=== PATIENT | male | born 1955 | race Caucasian/White ===

== ENCOUNTER 2017-04-26 01:27 | Emergency (ER) | payer MEDICAID ==
[2017-04-26 01:43] VITALS: BMI 18.3
[2017-04-26] MEDS ORDERED: HYDROGEN PEROXIDE 3% ONE (01:46)
--- NOTE | 2017-04-26 02:02 | DR.GENAD ---
HPI - PCP Primary Care Physician: bill - HPI Comment HPI Comment: ABRASIONS AND LACERATION PRESENT. HEADAHE AND NECK PAIN PRESENT. - Complaint/Symptoms Chief Complaint Doctors Comments: FELL AND INJURED FACE AND NECK. Chief Complaint:: patient fell in bathroom has laceration above left eye with abraison on lest side of nose and face. neck hurts felt it pop - Nurses notes reviewed Nurses Notes Review: Yes - Source History Provided: Patient, Family Member - Mode of Arrival Mode of Arrival: Ambulatory - Timing Onset of Chief Complaint: 04/26/17 Came on: Suddenly - Duration Duration: Constant Duration: Hours - Severity Severity: Moderate PMH - PMH Past Medical History: Yes Past Medical History: Angina, Arthritis, CVA, Dyslipidemia Past Surgical History: Yes Surgical History: Ortho Surgery Past Surgical History Comment: left aka/ stents in right leg - Family History History of Family Medical Conditions: Yes Family Medical History: Cancer, [place], Coronary Artery Disease, Heart Failure, Hypertension - Social History Does patient currently use any type of tobacco product: No Have you used tobacco products in the last 12 months: No Type of Tobacco Use: None How many years tobacco product used: 35 Does any household member use tobacco: No Alcohol Use: None Do you use any recreational Drugs:: No Lives With: Alone Lives Where: Home - infectious screening In the last 2 months have you had wt loss of >10#?: NO Have you had fever, night sweats or hemotysis?: No Have you traveled outside the country in the last 6 months?: No Isolation: Standard ROS - Review of Systems Constitutional: No Symptoms Reported Eyes: Blurred Vision (LEFT EYE.) ENTM: No Symptoms Reported Respiratoy: No Symptoms Reported Cardiovascular: No Symptoms Reported Gastrointestinal/Abdominal: No Symptoms Reported Genitourinary: No Symptoms Reported Neurological: Headache Musculoskeletal: Neck, Elbow (LEFT ELBOR BRUISING AND ABRASION), Leg (ABRASION AND BRUISING LEFT AKA STUMP.), Other (LEFT PEROORBITAL AND NOSE PAIN) Integumentary: Bruises (BRUISING AND ABRASION LEFT NOSE.), Other (LACERATION LEFT EYE BROW AND MEDIAL CORNER LEFT EYE.) Hematologic/Lymphatic: Easy Bruising Endocrine: No Symptoms Reported All Other Systems: Reviewed and Negative PE - Vital Signs Vitals: Temperature 98.9 F Pulse Rate [Right Brachial] 72 Pulse Rate 115 Respiratory Rate 16 Blood Pressure [Right Arm] 138/79 Blood Pressure 148/75 O2 Sat by Pulse Oximetry 97 - General Limitations: No Limitations General Appearance: Alert, Anxious - Head Head Exam: Other (ABRASION LT NOSE, TENDERNESS LT NOSE. LEFT PERIORBITAL SWELLING.) - Eyes Eye exam: PERRL, EOMI, Conjunctival Injection (SUBCONJUNCTIVA HEMORRHAGE), Periorbital Swelling, Periorbital Tenderness, Other (LACERATION, 2CM LT EYE BROW AND 1CM LAC MEDIAL CORNER LEFT EYE.) - ENT ENT Exam: Normal Oropharynx, Normal External Ear Exam, Mucous Membranes Moist, TM's Normal Bilaterally External Ear Exam: Normal External Inspection TM/Canal Exam: Bilateral Normal Nose Exam: Other (ABRASION LEFT NOSE AND TENDERNESS NOSE.) Mouth Exam: Normal Inspection Throat Exam: Normal Inspection - Neck Neck Exam: Trachea Midline, Tenderness - Chest Chest Inspection: Symmetric Chest Wall Rise - Respiratory Respiratory Exam: Normal Lung Sounds Bilat Respiratory Exam: Bilateral Clear to Auscultation - Cardiovascular Cardiovascular Exam: Regular Rate, Normal Rhythm, Normal Heart Sounds - Abdominal Exam Abdominal Exam: Normal Bowel Sounds, Soft. negative: Tenderness - Extremities Extremities Exam: Full ROM, Tenderness (LT AKA STUMP AND LT ELBOW ABRASION AND TENDERNESS.). negative: Joint Swelling - Back Back Exam: Normal Inspection - Neurologic Neurological Exam: Alert, Oriented X3 - Psychiatric Psychiatric Exam: Anxious - Skin Skin Exam: Erythema MDM - Additional Information Additional Information Obtained From: Family - Differential Diagnosis Differential Diagnosis: CONTUSIONS AND ABRSIONS, HEAD/NECK INJURY, FRACTURE NOSE LAC LT EYE BROW Course - Treatment Treatment: SEE ORDERS. LACERATION CLOSE. - Consultation Consultation Comments: DIS[facility] PATIENT [facility] DR[facility]UELS[facility] HIS PARTNER WILL SEE PATIENT IN AM AT THEIR [place] OFFICE. - Education/Counseling Education/Counseling: Patient, Family, Education Educated On: Treatment, Diagnosis ROR - XRAY XRAY Interpreted by: Radiologist XRAY Findings: REPORTS DISCUSS WITH PATIENT AND HIS FAMILY. - Diagnosis Discharge Problem: Multiple contusions, Multiple abrasions, Traumatic subconjunctival hemorrhage of left eye Laceration of nose Qualifiers: Encounter type: initial encounter Qualified Code(s): S01.21XA - Laceration without foreign body of nose, initial encounter Closed head injury Qualifiers: Encounter type: initial encounter Qualified Code(s): S09.90XA - Unspecified injury of head, initial encounter Complex laceration of left eyebrow Qualifiers: Encounter type: initial encounter Qualified Code(s): S01.112A - Laceration without foreign body of left eyelid and periocular area, initial encounter Neck strain Qualifiers: Encounter type: initial encounter Qualified Code(s): S16.1XXA - Strain of muscle, fascia and tendon at neck level, initial encounter - Discharge Plan Disposition: 01 HOME, SELF-CARE Condition: Stable Prescriptions: Cephalexin [KEFLEX CAP 500 MG *] 500 mg PO TID #30 cap - Follow ups/Referrals Follow ups/Referrals: JUVENAL LEW [Primary Care Provider] - 3 days - Instructions Instructions: Laceration Care, Adult, [id number], Nasal Fracture, Easy-to- Read Additional Instructions: return to ed if worse. suture out in 10 days. see platic surgeon in am in [place] at 09:[phone] samuels office. his partner will tend to the patient.
--- NOTE | 2017-04-26 02:53 | CT ---
CT head without contrast Indication: Headache after fall. Technique: CT images of the head were obtained without contrast. Automatic exposure control was util ized. Findings: There is right frontal encephalomalacia consistent with remote infarct. There is a smaller area of left frontal encephalomalacia as well. There is no acute bleed, mass effect, or abnormal ex tra-axial collection. No acute calvarial fracture identified. The mastoid air cells and middle ears are clear. Cervical and facial findings reported separately. Impression: No acute intracranial abnormality. Chronic bifrontal infarcts. Reported By:
--- NOTE | 2017-04-26 02:57 | CT ---
CT face without contrast Indication: Trauma with facial injury. Technique: CT images of the face were obtained without contrast. Automatic exposure control was util ized. Findings: There is significant left periorbital soft tissue swelling with associated soft tissue gas in the left supraorbital region, suggesting laceration. No radiopaque foreign body identified. The globes are grossly intact. No significant retrobulbar stranding or hematoma is seen. There may be a nondisplaced left nasal bone fracture. The bony nasal septum is midline. No displaced facial fractur e identified. The mandible is intact. The paranasal sinuses are grossly clear. Impression: Left periorbital soft tissue injury with nondisplaced left nasal bone fracture. No displaced facial fracture identified. Reported By:
--- NOTE | 2017-04-26 03:01 | CT ---
CT cervical spine without contrast Indication: Trauma, fall, pain. Comparison: None Technique: CT images of the cervical spine were obtained without contrast. Automatic exposure contro l was utilized. Findings: The cervical spine alignment is normal. No significant vertebral body height loss or corti jefry disruption is identified. There is multilevel discogenic degenerative disease, moderate to advan morena at C5-6 and C6-7. Moderate multilevel facet arthropathy is also noted. No significant prevertebr al soft tissue swelling. Images of the upper lungs demonstrate emphysema. No apical pneumothorax. Impression: No acute cervical spine fracture. Multilevel spondylosis worst at C5-6 and C6-7. Emphysema. Reported By:
[2017-04-26] MEDS ORDERED: XYLOCAINE 1 % (PLAIN) ONE (03:02)
[2017-04-26] MEDS ORDERED: GENTAK OPHTH OINT ONE (03:50)
[2017-04-26] MEDS ORDERED: FUL-GLO STRIP ONE (03:50)
[2017-04-26] MEDS ORDERED: NEOSPORIN OINT ONE (03:50)
[2017-04-26] MEDS ORDERED: ANCEF VIAL 1 GM ONE (04:36)
[2017-04-26] MEDS ORDERED: XYLOCAINE 1 % (PLAIN) IM PRN (04:39)
[2017-04-26] MEDS ORDERED: GENTAMICIN TOPICAL OINT TOP ONE (04:43)
[2017-04-26] MEDS ORDERED: ANCEF VIAL 1 GM IM ONE (04:43)
[2017-04-26 05:48] VITALS: BP 138/79
== END 2017-04-26 05:45 | disposition home or self-care (01) ==
LOC: ER 01:27
DX: S01.21XA Laceration without foreign body of nose, initial encounter (principal); S09.90XA Unspecified injury of head, initial encounter; S01.112A Laceration without foreign body of left eyelid and periocular area, initial encounter; S16.1XXA Strain of muscle, fascia and tendon at neck level, initial encounter; T14.8 Other injury of unspecified body region; H11.32 Conjunctival hemorrhage, left eye; J43.9 Emphysema, unspecified; M47.812 Spondylosis without myelopathy or radiculopathy, cervical region; W19.XXXA Unspecified fall, initial encounter; Y92.89 Other specified places as the place of occurrence of the external cause
CPT/HCPCS: 70450; 70486; 72125; 96372; 99283; J0690; J2001

== ENCOUNTER 2017-04-30 10:27 | Day surgery (SDC) | payer MEDICAID ==
[2017-04-30] MEDS ORDERED: KENALOG INJ 40 MG ONE (11:14)
[2017-04-30] MEDS ORDERED: XYLOCAINE 1 % (PLAIN) ONE (11:14)
[2017-04-30] MEDS ORDERED: MARCAINE 0.5% ONE (11:14)
--- NOTE | 2017-04-30 11:16 | DR.H&P ---
H&P - History & Physical for Day of: H&P Date: 04/30/17 - Chief Complaint Chief Complaint: back pain - Allergies Allergies/Adverse Reactions: Allergies Allergy/AdvReac Type Severity Reaction Status Date / Time MS No Known Drug Allergy Allergy Verified 07/03/12 17:28 [No Known Drug Allergy] - History of Present Illness History of Present Illness: long standing h/o above cc. received bilateral facet injections L5-S1 2012 with some relief. has been hurting for some time since, however. pt is very diffucult to unerstand due to previous cva. his sister interprets - Past Medical History Past Medical History: Angina, Arthritis, CVA, Dyslipidemia - Past Surgical History Surgical History: Ortho Surgery - Family History Family Medical History: Cancer, [place], Coronary Artery Disease, Heart Failure, Hypertension - Social History Does patient currently use any type of tobacco product: No Have you used tobacco products in the last 12 months: No Type of Tobacco Use: None Alcohol Use: None Drug Use: None - Review of Systems Skin: Bruising (left eye secondary to recent fall) - Physical Exam Vital Signs: Temperature 98.1 F Pulse Rate 67 Respiratory Rate 20 Blood Pressure [Right Arm] 138/79 Blood Pressure 135/80 O2 Sat by Pulse Oximetry 98 Musculoskeletal: Back:Thoracic (no pain on palpation), Back:Lumbar (no pain on palpation) Psychiatric: Normal Mood Description: Anxious Speech Pattern: Unclear, Slurred (s/p cva) - Assessment/Plan (1) Back pain Qualifiers: Back pain location: B Chronicity: C Back pain laterality: B Sciatica presence: S Sciatica laterality: S Status: Acute Plan: facet injection L5-S1 bilaterally
[2017-04-30] MEDS ORDERED: MARCAINE/EPINEPHRINE ONE (11:31)
[2017-04-30 14:01] VITALS: BP 126/75
== END 2017-04-30 11:59 | disposition home or self-care (01) | DRG 552 ==
LOC: SURG1 10:27
PROVIDERS: ATTEND Internal Medicine
PROC: 3E0U33Z Introduction of Anti-inflammatory into Joints, Percutaneous Approach (ICD-10-PCS; 2017-04-30)
PROC: BR16ZZZ Fluoroscopy of Lumbar Facet Joint(s) (ICD-10-PCS; 2017-04-30)
PROC: 3E0U3BZ Introduction of Anesthetic Agent into Joints, Percutaneous Approach (ICD-10-PCS; principal; 2017-04-30 12:45)
DX: M54.89 Other dorsalgia (principal)
CPT/HCPCS: 64493; 64494; S0020; J2001; J3301

== ENCOUNTER → 2017-07-17 | Outpatient (CLI) | payer MEDICAID ==
--- NOTE | 2017-07-17 16:24 | RAD ---
Examination: Lumbar spine, five views History: Low back pain Findings: There is mild disc narrowing and marginal osteophyte formation at multiple levels. No fract ure or vertebral displacement or bone destruction is noted. Pedicles are intact. The sacroiliac joint s are not well visualized. There is extensive arteriosclerotic calcification of the nondilated aorta and iliac arteries. Additional lateral views were obtained in flexion and extension demonstrating nor mal sagittal mobility without evidence for subluxation/instability. Impression: 1. Multilevel degenerative disc disease and spondylosis with no acute component identified. 2. Aortoiliac arteriosclerosis. Reported By:
--- NOTE | 2017-07-17 17:17 | CT ---
HISTORY: Back pain x2 weeks. No trauma. Study: CT lumbar spine without contrast Comparison: Lumbar spine dated same day at 3:19 p.m. Technique: Multiple axial images of the lumbar spine were obtained from the thoracolumbar junction t o the sacrum without the administration of IV contrast. Sagittal and coronal reformats were performe d and reviewed. Dose reduction techniques including Automated Exposure Control (AEC) and adjustment of mA and kV were utilized. Findings: Anatomic alignment without acute fracture or listhesis. Multilevel [id number] disc space narrow ing, facet arthrosis and anterior disc osteophyte complexes. No significant spinal canal stenosis. Mi ld bilateral neural foraminal narrowing at L3 through L5. Bilateral nonobstructing renal nephroliths. Vascular calcifications without evidence of aneurysmal dilatation. Remaining soft tissues are unrema rkable. IMPRESSION: Chronic findings as above. Reported By:
== END | disposition home or self-care (01) ==
LOC: RAD 14:55
PROVIDERS: ATTEND Neurological Surgery
DX: M54.5 Low back pain (principal); M51.36 Other intervertebral disc degeneration, lumbar region; M47.896 Other spondylosis, lumbar region
CPT/HCPCS: 72110; 72131

== ENCOUNTER → 2017-08-17 | Outpatient (CLI) | payer MEDICAID ==
--- NOTE | 2017-08-21 07:45 | NM ---
Nuclear medicine bone scan Indication: Low back pain Comparison: CT dated 07/17/2017 Technique: 25.28 mCi of technetium labeled MDP was injected intravenously with whole body planar imag ing performed. Findings: There is physiologic radiotracer distribution within the kidneys and bladder. There is mild increased radiotracer uptake within the lower cervical spine on the left suspected at the approximat e level of C5-6 facet joint. Decreased radiotracer uptake is noted within the right greater than left AC joints. No other abnormal radiotracer accumulation is identified within the axial or appendicular skeleton. Impression: Focal radiotracer uptake within the lower cervical spine and bilateral AC joints most lik kera represents sequela of osteoarthrosis. No pathologic increased or decreased radiotracer uptake wit hin the axial or appendicular skeleton. Reported By:
== END ==
LOC: RAD 09:11
PROVIDERS: ATTEND Neurological Surgery
DX: M54.5 Low back pain (principal)
CPT/HCPCS: 78306; A9503

== ENCOUNTER 2018-05-06 16:23 | Observation (INO) ==
[2018-05-06] MEDS ORDERED: MORPHINE SULFATE INJ 2 MG INJ IVP PRN (17:27)
[2018-05-06] MEDS ORDERED: FLEXERIL TAB 10 MG PO PRN (17:27)
--- NOTE | 2018-05-06 17:56 | DR.H&P ---
H&P - History & Physical for Day of: H&P Date: 05/06/18 - Chief Complaint Chief Complaint: LEFT HIP PAIN, ELEVATED BLOOD PRESSURE, CHEST PAIN - History of Present Illness History of Present Illness: 62WM DIRECT ADMIT FROM DR TREVINO OFFICE WITH CO INTRACTABLE LEFT HIP PAIN, CRYING IN LOBBY WITH PAIN, CO CHEST PAIN AND ELEVATED BLOOD PRESSURE. PT STATES HE HAS TAKEN BP MEDICATION THIS AM AND PAIN CONTROL MEDICATION AND HAS FENTANYL PATCH ON. PT STATES HE THINKS CHEST PAIN IS FROM SEVERE HIP PAIN AND BEING UPSET. PT HAD PMH OF PAD, CVD, OA, HTN. PT BP 190 /120 IN OFFICE. PT GIVEN TORADOL SHOT IN OFFICE FOR PAIN. - Past Medical History Past Medical History: Angina, Arthritis, CVA, Dyslipidemia, Headaches, Hypertension Additional Medical History: PAD - Past Surgical History Surgical History: Appendectomy - Family History Family Medical History: Cancer, Hypertension - Social History Does patient currently use any type of tobacco product: No Have you used tobacco products in the last 12 months: No Type of Tobacco Use: None Does any household member use tobacco: No Alcohol Use: None Drug Use: None - Medications Home Medications: No Known Drug Allergies Allergy (Verified 05/06/18 17:22) CONTINUE taking the following medications buspirone 7.5 mg PO BID 05/06/18 [History] cilostazol 100 mg PO BID 05/06/18 [History] clopidogrel [Plavix] 75 mg PO QDAY 05/06/18 [History] fentanyl 1 patch TRANSDERMAL Q72H 05/06/18 [History] gabapentin [Neurontin] 300 mg PO TID 05/06/18 [History] hydrocodone-acetaminophen [[place]] 1 tab PO Q6H PRN 05/06/18 [History] lisinopril 5 mg PO QDAY 05/06/18 [History] meloxicam 7.5 mg PO BID 05/06/18 [History] nitroglycerin 0.4 mg SUBLINGUAL Q5-15M PRN 05/06/18 [History] rizatriptan 10 mg PO ONCE 05/06/18 [History] simvastatin 10 mg PO QHS 05/06/18 [History] topiramate [Topamax] 25 mg PO QDAY 05/06/18 [History] zolpidem [Ambien] 10 mg PO QHS PRN 05/06/18 [History] - Review of Systems Constitutional: Weakness Eyes: No Symptoms Reported ENT: No Symptoms Reported Respiratory: Shortness of Breath Cardiovascular: Chest Pain Gastrointestinal: No Symptoms Reported Genitourinary: No Symptoms Reported Musculoskeletal: Leg Pain (HIP PAIN ) Skin: No Symptoms Reported Neurological: Weakness, Other (CHRONIC SPEECH IMPAIRMENT) - Physical Exam Vital Signs: Blood Pressure [Right Arm] 138/79 Blood Pressure 126/75 Oriented: Normal Eyes: Normal Ear: Normal Nose: Normal Throat: Normal Respiratory: RLL Diminished, LLL Diminished Cardiovascular: Tachycardia : Normal Auscultation: Bowel Sounds: Normal Palpation: Normal Tenderness: Normal Skin: Decreased [place]urgur Musculoskeletal: Left, Hip, Thigh, Deformity (LEFT AKA) Psychiatric: Anxiety Affect: Anxious Speech Pattern: Unclear, Excessive - Assessment/Plan (1) Chest pain Status: Acute Plan: ADMIT, CARDIAC MONITORING, CARDIAC ENZYMES. EKG, ADMISSION LABS. CXR ON ADMISSION BP CONTROL. RESUME HOME MEDS. XRAY HIP ON ADMISSION, PAIN CONTROL, MRI LEFT HIP AND L SPINE Q AM. IV SOLUMEDROL AND FLEXERIL FOR MUSCLE SPASMS (2) Hypertensive urgency Status: Acute (3) Hip pain Status: Acute (4) CVD (cardiovascular disease) Status: Acute - Allergies Allergies/Adverse Reactions: Allergies Allergy/AdvReac Type Severity Reaction Status Date / Time No Known Drug Allergies Allergy Verified 05/06/18 17:22
[2018-05-06 17:58] LABS: BASOPHILS # (AUTO) 0.1 X10^3/uL (0.0-0.1); BASOPHILS % (AUTO) 0.9 % (0.2-1.0); EOSINOPHILS # (AUTO) 0.1 x10^3/uL (0.0-0.2); EOSINOPHILS % (AUTO) 1.6 % (0.9-2.9); HEMATOCRIT 40.9 % (42.0-54.0); HEMOGLOBIN 13.9 g/dL (13.5-18.0); LYMPHOCYTES # (AUTO) 1.1 X10^3/uL (1.3-2.9); LYMPHOCYTES % (AUTO) 18.1 % (21.0-51.0); MEAN CORPUSCULAR HEMOGLOBIN 30.2 pg (27.0-34.0); MEAN CORPUSCULAR HGB CONC 33.9 g/dL (33.0-35.0); MEAN CORPUSCULAR VOLUME 89.2 fL (80.0-100.0); MEAN PLATELET VOLUME 6.8 fL (7.4-11.0); MONOCYTES # (AUTO) 0.4 x10^3/uL (0.3-0.8); MONOCYTES % (AUTO) 6.1 % (0.0-13.0); NEUTROPHILS # (AUTO) 4.4 x10^3/uL (2.2-4.8); NEUTROPHILS % (AUTO) 73.3 % (42.0-75.0); PLATELET COUNT 334 X10^3/uL (150.0-450.0); RED BLOOD COUNT 4.58 X10^6/uL (4.7-6.0); RED CELL DISTRIBUTION WIDTH 12.7 % (11.6-16.5)
[2018-05-06] MEDS ORDERED: NITROSTAT SL PRN (17:59)
[2018-05-06] MEDS ORDERED: NORCO 10/325 TAB PO PRN (17:59)
[2018-05-06] MEDS ORDERED: RIZATRIPTAN 10 MG PO SCH (18:00)
--- NOTE | 2018-05-06 18:05 | RAD ---
HISTORY: Severe left hip pain Study: Bilateral two-view hips Comparison: CTA of the pelvis done 01/16/2013. Technique: AP views of the pelvis are obtained with the hips in neutral and frogleg lateral positions . Findings: No evidence of fracture or dislocation is seen. The femoral heads are well seated within the acetabul ar regions bilaterally. There is no evidence of radiographic AVN. There are surgical clips present in both groin regions. There is a mild small bowel ileus pattern present. IMPRESSION: No evidence of hip fracture or dislocation. Reported By:
--- NOTE | 2018-05-06 18:06 | RAD ---
HISTORY: Severe left hip pain, hypertension Study: Single-view chest Comparison: 10/23/2013 Findings: The trachea is midline. The cardiac silhouette is unremarkable. There are chronic interstitial change s suggesting COPD. No acute infiltrate, consolidation, or pleural effusion is identified. The bony st ructures are intact. IMPRESSION: 1. COPD without acute cardiopulmonary process evident Reported By:
[2018-05-06 18:12] LABS: BLOOD UREA NITROGEN 7 mg/dL (7-18); CALCIUM 8.5 mg/dL (8.5-10.1); CARBON DIOXIDE 28.2 mmol/L (21-32); CHLORIDE 103 mmol/L (98-107); COR NA(FOR HYPERGLY) 137 mmol/L (136-145); CREATININE 0.88 mg/dL (0.70-1.30); SODIUM 137 mmol/L (136-145); TROPONIN I < 0.02 ng/mL (0-1.5); eGFR NON BLACK RACES > 60 (>60)
[2018-05-06 18:16] LABS: ALANINE AMINOTRANSFERASE 19 Units/L (12-78); ALBUMIN 3.5 g/dL (3.4-5.0); ALKALINE PHOSPHATASE 95 Units/L (46-116); ASPARTATE AMINO TRANSFERASE 16 Units/L (15-37); CKMB % 2.4 % (<4); CREATINE KINASE 67 Units/L (39-308); CREATINE KINASE MB 1.6 ng/mL (0-4.0)
[2018-05-06] MEDS: SOLU-Medrol 125 MG VIAL IVP SCH ×2 (18:40→21:41)
[2018-05-06] MEDS: BUSPAR PO SCH ×2 (18:43→21:33)
[2018-05-06] MEDS ORDERED: AMBIEN PO PRN (21:00)
[2018-05-06] MEDS ORDERED: ZOCOR TAB 10 MG PO SCH (21:00)
[2018-05-06] MEDS: NEURONTIN CAP 300 MG PO SCH (21:33)
[2018-05-06] MEDS: MOBIC TAB 15 MG PO SCH (21:36)
[2018-05-06] MEDS: PLETAL PO SCH (21:40)
[2018-05-07 01:42] LABS: BILIRUBIN,URINE NEGATIVE (NEGATIVE); BLOOD/HEMOGLOBIN,URINE NEGATIVE (NEGATIVE); GLUCOSE, URINE NEGATIVE (NEGATIVE); KETONES,URINE NEGATIVE (NEGATIVE); LEUKOCYTE ESTERASE ,URINE NEGATIVE (NEGATIVE); NITRITES,URINE NEGATIVE (NEGATIVE); PROTEIN,URINE NEGATIVE (NEGATIVE); UROBILINOGEN,URINE NORMAL (NORMAL)
[2018-05-07 02:08] LABS: APPEARANCE,URINE CLEAR (CLEAR); COLOR,URINE YELLOW (YELLOW)
[2018-05-07 05:11] LABS: BASOPHILS % (AUTO) 0.2 % (0.2-1.0); HEMATOCRIT 40.4 % (42.0-54.0); LYMPHOCYTES # (AUTO) 0.9 X10^3/uL (1.3-2.9); LYMPHOCYTES % (AUTO) 11.6 % (21.0-51.0); MEAN CORPUSCULAR HEMOGLOBIN 30.4 pg (27.0-34.0); MEAN CORPUSCULAR HGB CONC 34.5 g/dL (33.0-35.0); MEAN PLATELET VOLUME 6.8 fL (7.4-11.0); MONOCYTES # (AUTO) 0.1 x10^3/uL (0.3-0.8); MONOCYTES % (AUTO) 0.7 % (0.0-13.0); NEUTROPHILS # (AUTO) 6.6 x10^3/uL (2.2-4.8); NEUTROPHILS % (AUTO) 87.5 % (42.0-75.0); PLATELET COUNT 366 X10^3/uL (150.0-450.0); RED BLOOD COUNT 4.59 X10^6/uL (4.7-6.0); RED CELL DISTRIBUTION WIDTH 12.6 % (11.6-16.5); WHITE BLOOD COUNT 7.6 X10^3/uL (3.6-10.0)
[2018-05-07] MEDS: NEURONTIN CAP 300 MG PO SCH ×2 (05:12→14:15)
[2018-05-07] MEDS: SOLU-Medrol 125 MG VIAL IVP SCH ×2 (05:12→14:15)
[2018-05-07 05:24] LABS: ALANINE AMINOTRANSFERASE 20 Units/L (12-78); ALBUMIN 3.3 g/dL (3.4-5.0); ALKALINE PHOSPHATASE 96 Units/L (46-116); ASPARTATE AMINO TRANSFERASE 15 Units/L (15-37); BLOOD UREA NITROGEN 10 mg/dL (7-18); CALCIUM 8.7 mg/dL (8.5-10.1); CARBON DIOXIDE 24.2 mmol/L (21-32); CHLORIDE 102 mmol/L (98-107); COR CA(FOR HYPOALB) 9.3 mg/dL (8.5-10.1); COR NA(FOR HYPERGLY) 136 mmol/L (136-145); CREATININE 0.97 mg/dL (0.70-1.30); SODIUM 135 mmol/L (136-145); eGFR NON BLACK RACES > 60 (>60)
[2018-05-07 08:51] VITALS: BMI 17.3
[2018-05-07] MEDS ORDERED: ZESTRIL TAB 5 MG PO SCH (09:00)
[2018-05-07] MEDS ORDERED: PLAVIX PO SCH (09:00)
[2018-05-07] MEDS ORDERED: TOPAMAX PO SCH (09:00)
[2018-05-07] MEDS: MOBIC TAB 15 MG PO SCH (09:24)
--- NOTE | 2018-05-07 09:24 | PCM.PROG ---
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 PT DENIES SOB THIS AM OR CP, CONTINUE WITH CO LEFT HIP PAIN AND SPAMS, PAIN RADIATES DOWN LEFT STUMP. - Past Medical Family Social History Past Med/Fam/Surg Hx: No changes since H&P Allergies: Allergies No Known Drug Allergies Allergy (Verified 05/06/18 17:22) - Review of Systems ROS: No change since H&P - Vital Signs and I&O's Vital Signs: Temperature 97.5 F Pulse Rate [Right Brachial] 99 Respiratory Rate 20 Blood Pressure [Right Arm] 120/66 Blood Pressure 126/75 O2 Sat by Pulse Oximetry 95 Intake and Output: Intake & Output 05/04/18 05/05/18 05/06/18 05/07/18 11:59 11:59 11:59 11:59 Intake Total 260 / 260 Balance 260 / 260 - Physical Exam Oriented: Normal Eyes: Normal Ear: Normal Nose: Normal Throat: Normal Respiratory: Normal Cardiovascular: Tachycardia : Normal Auscultation: Bowel Sounds: Normal Tenderness: Normal Skin: Decreased Turgur Musculoskeletal: Left, Hip, Thigh, Deformity (LEFT AKA) Psychiatric: Anxiety Mood Description: Anxious Affect: Anxious Speech Pattern: Clear, Appropriate - Laboratory and Diagnostics Result Diagrams: 05/07/18 04:45 05/07/18 04:45 Labs: Laboratory WBC 7.6 X10^3/uL (3.6-10.0) 05/07/18 04:45 RBC 4.59 X10^6/uL (4.7-6.0) L 05/07/18 04:45 Hgb 14.0 g/dL (13.5-18.0) 05/07/18 04:45 Hct 40.4 % (42.0-54.0) L 05/07/18 04:45 MCV 88.0 fL (80.0-100.0) 05/07/18 04:45 MCH 30.4 pg (27.0-34.0) 05/07/18 04:45 MCHC 34.5 g/dL (33.0-35.0) 05/07/18 04:45 RDW 12.6 % (11.6-16.5) 05/07/18 04:45 Plt Count 366 X10^3/uL (150.0-450.0) 05/07/18 04:45 MPV 6.8 fL (7.4-11.0) L 05/07/18 04:45 Neut % (Auto) 87.5 % (42.0-75.0) H 05/07/18 04:45 Lymph % (Auto) 11.6 % (21.0-51.0) L 05/07/18 04:45 [place] % (Auto) 0.7 % (0.0-13.0) 05/07/18 04:45 Eos % (Auto) 0.0 % (0.9-2.9) L 05/07/18 04:45 Baso % (Auto) 0.2 % (0.2-1.0) 05/07/18 04:45 Neut # (Auto) 6.6 x10^3/uL (2.2-4.8) H 05/07/18 04:45 Lymph # (Auto) 0.9 X10^3/uL (1.3-2.9) L 05/07/18 04:45 [place] # (Auto) 0.1 x10^3/uL (0.3-0.8) L 05/07/18 04:45 Eos # (Auto) 0.0 x10^3/uL (0.0-0.2) 05/07/18 04:45 Baso # (Auto) 0.0 X10^3/uL (0.0-0.1) 05/07/18 04:45 Absolute Nucleated RBC 0.0 /100WBC 05/07/18 04:45 Sodium 135 mmol/L (136-145) L 05/07/18 04:45 Corrected Sodium 136 mmol/L (136-145) 05/07/18 04:45 Potassium 4.4 mmol/L (3.5-5.1) 05/07/18 04:45 Chloride 102 mmol/L (98-107) 05/07/18 04:45 Carbon Dioxide 24.2 mmol/L (21-32) 05/07/18 04:45 BUN 10 mg/dL (7-18) 05/07/18 04:45 Creatinine 0.97 mg/dL (0.70-1.30) 05/07/18 04:45 Est GFR (MDRD) Af Amer > 60 (>60) 05/07/18 04:45 Est GFR (MDRD) Non-Af > 60 (>60) 05/07/18 04:45 Glucose 152 mg/dL (65-99) H 05/07/18 04:45 Calcium 8.7 mg/dL (8.5-10.1) 05/07/18 04:45 Corrected Calcium 9.3 mg/dL (8.5-10.1) 05/07/18 04:45 Total Bilirubin 0.60 mg/dL (0.2-1.0) 05/07/18 04:45 AST 15 Units/L (15-37) 05/07/18 04:45 ALT 20 Units/L (12-78) 05/07/18 04:45 Alkaline Phosphatase 96 Units/L (46-116) 05/07/18 04:45 Creatine Kinase 67 Units/L (39-308) 05/06/18 17:39 CK-MB (CK-2) 1.6 ng/mL (0-4.0) 05/06/18 17:39 CK/CKMB % Calc 2.4 % (<4) 05/06/18 17:39 Troponin I < 0.02 ng/mL (0-1.5) 05/06/18 17:39 Total Protein 7.0 g/dL (6.4-8.2) 05/07/18 04:45 Albumin 3.3 g/dL (3.4-5.0) L 05/07/18 04:45 Globulin 3.7 g/dL (2.5-4.5) 05/07/18 04:45 Albumin/Globulin Ratio 0.9 Ratio (1.1-2.1) L 05/07/18 04:45 Specimen Type Clean catch urine 05/06/18 00:59 Urine Color Yellow (YELLOW) 05/06/18 00:59 Urine Appearance Clear (CLEAR) 05/06/18 00:59 Urine pH 8.0 (5.0 - 8.0) 05/06/18 00:59 Ur Specific [place] 1.015 (1.000-1.030) 05/06/18 00:59 Urine Protein Negative (NEGATIVE) 05/06/18 00:59 Urine Glucose (UA) Negative (NEGATIVE) 05/06/18 00:59 Urine Ketones Negative (NEGATIVE) 05/06/18 00:59 Urine Occult Blood Negative (NEGATIVE) 05/06/18 00:59 Urine Nitrite Negative (NEGATIVE) 05/06/18 00:59 Urine Bilirubin Negative (NEGATIVE) 05/06/18 00:59 Urine Urobilinogen Normal (NORMAL) 05/06/18 00:59 Ur Leukocyte Esterase Negative (NEGATIVE) 05/06/18 00:59 - Plan (1) Chest pain Status: Acute Plan: CARDIAC MONITORING, CARDIAC ENZYMES. EKG ON ADMISSION. AM LABS. CXR ON ADMISSION BP CONTROL. XRAY HIP ON ADMISSION, PAIN CONTROL, MRI LEFT HIP AND L SPINE Q AM. IV SOLUMEDROL AND FLEXERIL FOR MUSCLE SPASMS (2) Hypertensive urgency Status: Acute Plan: IMPROVING, CONTINUE HOME MEDICATION (3) Hip pain Status: Acute Qualifiers: Laterality: left Qualified Code(s): M25.552 - Pain in left hip Plan: INTRACTABLE PAIN, CONTINUE MORPHINE Q 4 HRS X 3 DOSES THEN PRN. CONTINUE HOME PAIN MEDICATION PRN. RECEIVED IV SOLU MEDROL AND PO FLEXERIL WITH SLIGHT IMPROVEMENT IN SPASMS. MRI ORDERED FOR THIS AM (4) CVD (cardiovascular disease) Status: Acute
[2018-05-07] MEDS: PLETAL PO SCH (09:25)
[2018-05-07] MEDS: MORPHINE SULFATE INJ 2 MG INJ IVP SCH ×2 (09:32→14:14)
[2018-05-07 12:01] VITALS: BP 113/58
[2018-05-07] MEDS ORDERED: TAB-A-VITE PO SCH (13:00)
--- NOTE | 2018-05-07 13:39 | MRI ---
MRI lumbar spine without contrast Indication: Lower back pain Technique: Multisequence, multiplanar MR images of the lumbar spine were obtained without IV contrast . Comparison: None Findings: Vertebral body heights, alignment and marrow signal are normal. No acute fracture, subluxat ion or suspicious osseous lesion is identified. The conus is not included in the [id number]. The v isualize cauda equina is unremarkable. The imaged paraspinal soft tissues are grossly unremarkable. T12-L1: Unremarkable L1-L2: Mild diffuse disc bulge without significant stenosis. L2-L3: Mild paracentral disc bulge without significant stenosis. L3-L4: There is a mild broad-based disc bulge which results in mild lateral recess narrowing bilatera lly. There is also a small annular tear of the posterior central disc. Mild facet arthropathy is note d without significant canal or neural foraminal stenosis. L4-L5: There is a broad-based disc bulge which results in mild lateral recess narrowing bilaterally, greater on the right. There is also mild facet arthropathy without significant canal or neural forami nal stenosis. L5-S1: Mild facet arthropathy. Otherwise, unremarkable. Impression: Mild multilevel degenerative disc disease and facet arthropathy of the lumbar spine, as detailed abov e. No evidence for high-grade canal or neural foraminal compromise at any level. Reported By:
--- NOTE | 2018-05-07 13:54 | MRI ---
MRI left hip and pelvis without contrast Indication: Severe left hip pain Technique: Multisequence, multiplanar MR images of the left hip were obtained without IV contrast. Comparison: Radiograph 05/06/2018 Findings: Please refer to separately dictated MRI of the lumbar spine for lumbosacral findings. Visualized marrow signal and bony alignment are normal. No acute fracture, subluxation, suspicious os seous lesion or MR evidence of osteonecrosis of either femoral head is identified. The SI joints and pubic symphysis are unremarkable. The left femoroacetabular joint space is well maintained without significant chondrosis, large full-t hickness chondral defect or subchondral marrow signal abnormality. There is no significant effusion o f the left hip. No focal labral defects are identified within the limits of a nonarthrographic exam a nd there is no discrete paralabral cyst. 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 The proximal hamstrings and remaining myotendinous struct ures about the bilateral hips and pelvis are otherwise unremarkable. The prostate is enlarged and bul ges into the base of the urinary bladder. The remaining imaged contents of the lower abdomen and pelv is are grossly unremarkable. Impression: Moderate generalized fatty atrophy of the visualized left thigh musculature, likely related to patien t's prior AKA. Otherwise, no significant abnormality to account for patient's left hip pain. Enlarged prostate. Correlation with PSA levels recommended. Reported By:
[2018-05-07] MEDS ORDERED: MEGACE PO SCH (21:00)
[2018-05-07] MEDS ORDERED: BUSPAR PO SCH (21:00)
== END 2018-05-07 15:55 | disposition home or self-care (01) ==
LOC: MED/SURG
PROVIDERS: ADMIT Internal Medicine; ATTEND Internal Medicine
DX: I25.10 Atherosclerotic heart disease of native coronary artery without angina pectoris; R51 Headache; Z79.899 Other long term (current) drug therapy; N40.0 Benign prostatic hyperplasia without lower urinary tract symptoms; M25.552 Pain in left hip; R07.89 Other chest pain; J44.9 Chronic obstructive pulmonary disease, unspecified; R73.09 Other abnormal glucose; R94.31 Abnormal electrocardiogram [ECG] [EKG]; E78.2 Mixed hyperlipidemia; I16.0 Hypertensive urgency; I10 Essential (primary) hypertension; M51.36 Other intervertebral disc degeneration, lumbar region
CPT/HCPCS: 36415; 71010; 71045; 72148; 73521; 73721; 80053; 81003; 82550; 82553; 84484; 85025; 93005; 93010; 97161; 97165; A4222; G0378; J2270; J2930

== ENCOUNTER 2022-11-20 12:04 | Observation (INO) ==
[2022-11-20] MEDS: ROCEPHIN VIAL 1 GRAM 1 G in NS 100 ML IV 100 ML IV SCH (12:57)
[2022-11-20] MEDS: SOLU-Medrol 40 MG VIAL IVP SCH ×3 (12:58→21:00)
[2022-11-20] MEDS: NS 1,000 ML IV 1,000 ML IV SCH (12:58)
[2022-11-20 13:05] LABS: BASOPHILS % (AUTO) 0.4 % (0.2-1.0); EOSINOPHILS % (AUTO) 0.5 % (0.9-2.9); HEMATOCRIT 40.7 % (42.0-54.0); HEMOGLOBIN 13.7 g/dL (13.5-18.0); LYMPHOCYTES % (AUTO) 21.1 % (21.0-51.0); MEAN CORPUSCULAR HEMOGLOBIN 30.2 pg (27.0-34.0); MEAN CORPUSCULAR HGB CONC 33.6 g/dL (33.0-35.0); MEAN CORPUSCULAR VOLUME 90.1 fL (80.0-100.0); MEAN PLATELET VOLUME 7.5 fL (7.4-11.0); MONOCYTES # (AUTO) 0.4 x10^3/uL (0.3-0.8); MONOCYTES % (AUTO) 8.6 % (0.0-13.0); NEUTROPHILS # (AUTO) 3.3 x10^3/uL (2.2-4.8); NEUTROPHILS % (AUTO) 69.4 % (42.0-75.0); RED BLOOD COUNT 4.52 X10^6/uL (4.7-6.0); RED CELL DISTRIBUTION WIDTH 14.4 % (11.6-16.5); WHITE BLOOD COUNT 4.8 X10^3/uL (3.6-10.0)
[2022-11-20 13:19] LABS: ALANINE AMINOTRANSFERASE 31 Units/L (12-78); ALBUMIN 2.9 g/dL (3.4-5.0); ALKALINE PHOSPHATASE 74 Units/L (46-116); ASPARTATE AMINO TRANSFERASE 46 Units/L (15-37); BLOOD UREA NITROGEN 9 mg/dL (7-18); CALCIUM 8.1 mg/dL (8.5-10.1); CARBON DIOXIDE 24.1 mmol/L (21-32); CHLORIDE 102 mmol/L (98-107); MAGNESIUM 1.8 mg/dL (2.0-2.9); SODIUM 135 mmol/L (136-145); TOTAL PROTEIN 6.9 g/dL (6.4-8.2); eGFR NON BLACK RACES > 60 (>60)
[2022-11-20] MEDS ORDERED: POTASSIUM CHLORIDE LIQ 20 MEQ UDC PO PRN (13:26)
[2022-11-20] MEDS ORDERED: POTASSIUM CHL 60 MEQ/NS 0.45% 500 ML IV PRN (13:26)
[2022-11-20] MEDS ORDERED: K-DUR TAB 20 MEQ PO PRN (13:26)
[2022-11-20] MEDS ORDERED: MICRO K EXTEN CAP 10 MEQ PO PRN (13:26)
[2022-11-20] MEDS ORDERED: K-RIDER 10 MEQ/NS 100 ML 10 MEQ/100 ML BAG IV PRN (13:26)
[2022-11-20] MEDS ORDERED: KLOR-CON PO PRN (13:26)
[2022-11-20] MEDS ORDERED: POTASSIUM CHL 40 MEQ/NS 0.45% 500 ML IV PRN (13:26)
[2022-11-20] MEDS: PULMICORT NEB TX 0.5 MG NEB SCH ×2 (13:40→20:18)
[2022-11-20] MEDS: XOPENEX 1.25 MG/3 ML NEBULE NEB SCH ×3 (13:40→20:18)
[2022-11-20] MEDS: MAGNESIUM SULFATE 1 GRAM/100 mL PREMIX 1 G/100 ML BAG IV PRN ×2 (14:09→18:34)
[2022-11-20] MEDS ORDERED: NORCO 10/325 TAB PO PRN (14:45)
--- NOTE | 2022-11-20 18:03 | DR.H&P ---
H&P - History & Physical for Day of: H&P Date: 11/20/22 - Chief Complaint Chief Complaint: CCC, DIARRHEA - History of Present Illness History of Present Illness: PT IS 67 WM, DIRECT ADMIT FROM DR LEW OFFICE WITH ACUTE ONSET OF CCC, FLU LIKE SYMPTOMS AND DIARRHEA ONSET SINCE SUNDAY. PT HAS PMH OF AFIB, CAD, PAD, CHF, CVA AND OA. PT ADMITTED FOR TREATMENT AND EVALUATION OF ACUTE ILLNESS. - Past Medical History Past Medical History: Angina, Hypertension, Dyslipidemia, CVA, Arthritis, Headaches Additional Medical History: PAD - Past Surgical History Surgical History: Ortho Surgery, Other - Family History Family Medical History: Cancer, Hypertension - Social History Does patient currently use any type of tobacco product: No Have you used tobacco products in the last 12 months: No Type of Tobacco Use: None Does any household member use tobacco: No Alcohol Use: None Drug Use: None - Medications Home Medications: No Known Drug Allergies Allergy (Unknown, Verified 10/09/22 06:58) CONTINUE taking the following medications apixaban 5 mg tablet (Eliquis) 1 tab PO BID 11/20/22 [History] clopidogrel 75 mg tablet 1 tab PO QDAY 11/20/22 [History] dronedarone 400 mg tablet (Multaq) 1 tab PO BID 11/20/22 [History] erenumab-aooe 140 mg/mL subcutaneous auto-injector (Aimovig Autoinjector) 1 ea subcut MONTHLY 11/20/22 [History] ferrous sulfate 325 mg (65 mg iron) tablet 325 mg PO QDAY 11/20/22 [History] fluoxetine 10 mg capsule 1 cap PO QDAY 11/20/22 [History] gabapentin 800 mg tablet 0.5 tab PO QID 11/20/22 [History] hydrocodone 10 mg-acetaminophen 325 mg tablet 1 tab PO QID PRN 11/20/22 [History] metoprolol tartrate 50 mg tablet 1 tab PO BID 11/20/22 [History] - Review of Systems Constitutional: Chills, Weakness, Malaise Eyes: No Symptoms Reported ENT: Nose Congestion Respiratory: Cough, Sputum, Wheezing Cardiovascular: No Symptoms Reported, Light Headedness Gastrointestinal: Nausea, Diarrhea. denies: Vomiting Genitourinary: No Symptoms Reported Musculoskeletal: Back Pain Skin: Wound (RIGHT EAR, HAS STITCHES FROM ) Neurological: Weakness, Other (CHRONIC SPEECH IMPAIRMENT) - Physical Exam Vital Signs: Temperature 98.3 F Pulse Rate 69 Respiratory Rate 20 Blood Pressure [Right Arm] 140/72 Blood Pressure 145/68 O2 Sat by Pulse Oximetry 100 Oriented: Normal Eyes: Normal Ear: Normal Nose: Normal Throat: Dry Respiratory: Wheezes Throughout, RLL Diminished, LLL Diminished Cardiovascular: Other (CONTROLLED RATE) Skin: Decreased Turgur, Wound (SUTURE TO RIGHT EAR) Musculoskeletal: Deformity (LLE AMPUTATION) Mood Description: Calm Speech Pattern: Appropriate, Unclear - Assessment/Plan (1) Bronchopneumonia Status: Acute Plan: ADMIT, RESP PANEL ONADMISSION. SUPPLEMENTAL O2, CXR ON ADMISSION. STRICT I&OS, CARDIAC MONITORING AND VERIFY HOME MEDICATIONS. RESP CONSULT, SPUTUM CULTURE ON ADMISSION. IV ROCEPHIN AND IV SOLU MEDROL (2) SOB (shortness of breath) Status: Acute (3) CHF (congestive heart failure) Status: Acute (4) CVD (cardiovascular disease) Status: Acute - Allergies Allergies/Adverse Reactions: Allergies Allergy/AdvReac Type Severity Reaction Status Date / Time No Known Drug Allergies Allergy Unknown Verified 10/09/22 06:58
--- NOTE | 2022-11-20 19:36 | RAD ---
HISTORYSOBSTUDYCHEST, 1 VIEWCOMPARISONCob[facility] 2022TECHNIQUEChest radiographic imaging, AP portable projection, 1 imageFINDINGSNo cardiomegaly.Pacemaker in place.Lungs are hyperinflated.No focal airspace disease.No pleural effusion.No pneumothorax.No acute osseous abnormality.IMPRESSION1. No imaging findings of acute cardiopulmonary disease.2. Lungs are hyperinflated; most consistent with COPD.Electronically signed by: Dave Viera (Nov 20, 2022 19:35:27)
[2022-11-20] MEDS: ROBITUSSIN DM PO SCH (20:22)
[2022-11-20] MEDS: LOPRESSOR TAB 50 MG PO SCH (20:22)
[2022-11-20] MEDS: LIPITOR TAB 10 MG PO SCH (20:22)
[2022-11-20] MEDS: MULTAQ PO SCH (20:22)
[2022-11-20] MEDS: ELIQUIS PO SCH (20:22)
[2022-11-20] MEDS: AMBIEN PO PRN (20:22)
[2022-11-20] MEDS: TOPAMAX PO SCH (20:22)
[2022-11-20 20:48] LABS: CRYPTOSPORIDIUM PARVUM ANTIGEN NEGATIVE (NEGATIVE); GIARDIA LAMBLIA ANTIGEN NEGATIVE (NEGATIVE)
[2022-11-21 01:52] LABS: BILIRUBIN,URINE NEGATIVE (NEGATIVE); BLOOD/HEMOGLOBIN,URINE 1+ (NEGATIVE); GLUCOSE, URINE 3+ (NEGATIVE); KETONES,URINE 1+ (NEGATIVE); LEUKOCYTE ESTERASE ,URINE NEGATIVE (NEGATIVE); NITRITES,URINE NEGATIVE (NEGATIVE); PROTEIN,URINE NEGATIVE (NEGATIVE); UROBILINOGEN,URINE NORMAL (NORMAL)
[2022-11-21 02:12] LABS: APPEARANCE,URINE CLEAR (CLEAR); BACTERIA,URINE NEGATIVE /HPF (NEGATIVE); COLOR,URINE YELLOW (YELLOW); SQUAMOUS EPITHELIAL CELL,UR RARE /HPF (NEGATIVE)
[2022-11-21 05:20] LABS: BASOPHILS % (AUTO) 0.1 % (0.2-1.0); HEMATOCRIT 36.7 % (42.0-54.0); HEMOGLOBIN 12.4 g/dL (13.5-18.0); LYMPHOCYTES # (AUTO) 0.6 X10^3/uL (1.3-2.9); LYMPHOCYTES % (AUTO) 16.1 % (21.0-51.0); MEAN CORPUSCULAR HEMOGLOBIN 30.1 pg (27.0-34.0); MEAN CORPUSCULAR HGB CONC 33.7 g/dL (33.0-35.0); MEAN CORPUSCULAR VOLUME 89.5 fL (80.0-100.0); MONOCYTES # (AUTO) 0.2 x10^3/uL (0.3-0.8); MONOCYTES % (AUTO) 4.8 % (0.0-13.0); NEUTROPHILS # (AUTO) 2.7 x10^3/uL (2.2-4.8); RED CELL DISTRIBUTION WIDTH 14.6 % (11.6-16.5); WHITE BLOOD COUNT 3.4 X10^3/uL (3.6-10.0)
[2022-11-21 05:24] LABS: ALANINE AMINOTRANSFERASE 20 Units/L (12-78); ALBUMIN 2.5 g/dL (3.4-5.0); ALKALINE PHOSPHATASE 64 Units/L (46-116); ASPARTATE AMINO TRANSFERASE 29 Units/L (15-37); BLOOD UREA NITROGEN 9 mg/dL (7-18); CALCIUM 7.9 mg/dL (8.5-10.1); CARBON DIOXIDE 20.8 mmol/L (21-32); CHLORIDE 107 mmol/L (98-107); COR CA(FOR HYPOALB) 9.1 mg/dL (8.5-10.1); COR NA(FOR HYPERGLY) 138 mmol/L (136-145); CREATININE 0.72 mg/dL (0.70-1.30); SODIUM 137 mmol/L (136-145); TOTAL PROTEIN 6.3 g/dL (6.4-8.2); eGFR NON BLACK RACES > 60 (>60)
[2022-11-21] MEDS: SOLU-Medrol 40 MG VIAL IVP SCH ×3 (05:38→21:00)
[2022-11-21] MEDS: NS 1,000 ML IV 1,000 ML IV SCH ×2 (05:38→17:08)
[2022-11-21] MEDS: XOPENEX 1.25 MG/3 ML NEBULE NEB SCH ×4 (09:00→20:50)
[2022-11-21] MEDS: PULMICORT NEB TX 0.5 MG NEB SCH ×2 (09:00→20:50)
--- NOTE | 2022-11-21 09:44 | RAD ---
HISTORYPNEUMONIA/CHF FOLLOW UPSTUDYCHEST, 1 [id number]/13/2023.TECHNIQUEPA or AP view of the chestFINDINGSLeft chest wall pacemaker with leads in similar position. Cardiac and mediastinal contours are within normal limits. Lungs are hyperexpanded. There are mild scattered interstitial opacities similar to prior. No consolidation or segmental lung collapse. No definite pleural effusion or pneumothorax.IMPRESSIONBackground of COPD. Interstitial opacities likely represent chronic interstitial disease but atypical pneumonia is not excluded..Electronically signed by: Reji Washington (Nov 21, 2022 09:43:01)
[2022-11-21] MEDS: ROCEPHIN VIAL 1 GRAM 1 G in NS 100 ML IV 100 ML IV SCH (09:54)
[2022-11-21] MEDS: ROBITUSSIN DM PO SCH ×4 (09:55→20:32)
[2022-11-21] MEDS: TOPAMAX PO SCH ×2 (09:55→20:33)
[2022-11-21] MEDS: FLOMAX PO SCH (09:55)
[2022-11-21] MEDS: PROTONIX TAB 40 MG PO SCH (09:55)
[2022-11-21] MEDS: PLAVIX PO SCH (09:55)
[2022-11-21] MEDS: ELIQUIS PO SCH ×2 (09:55→20:32)
[2022-11-21] MEDS: MULTAQ PO SCH ×2 (09:55→20:33)
[2022-11-21] MEDS: FERROUS GLUCONATE PO SCH (09:55)
[2022-11-21] MEDS: LOPRESSOR TAB 50 MG PO SCH ×2 (09:55→20:32)
[2022-11-21] MEDS ORDERED: LASIX IVP ONE (10:22)
[2022-11-21] MEDS ORDERED: K-DUR TAB 20 MEQ PO ONE (10:24)
[2022-11-21 11:57] VITALS: BMI 18.7
[2022-11-21] MEDS: AMBIEN PO PRN (20:32)
[2022-11-21] MEDS: LIPITOR TAB 10 MG PO SCH (20:33)
[2022-11-22 05:09] LABS: BASOPHILS % (AUTO) 0.1 % (0.2-1.0); HEMATOCRIT 34.5 % (42.0-54.0); HEMOGLOBIN 11.6 g/dL (13.5-18.0); LYMPHOCYTES # (AUTO) 0.6 X10^3/uL (1.3-2.9); LYMPHOCYTES % (AUTO) 7.5 % (21.0-51.0); MEAN CORPUSCULAR HGB CONC 33.6 g/dL (33.0-35.0); MEAN CORPUSCULAR VOLUME 89.3 fL (80.0-100.0); MEAN PLATELET VOLUME 7.5 fL (7.4-11.0); MONOCYTES # (AUTO) 0.2 x10^3/uL (0.3-0.8); MONOCYTES % (AUTO) 2.9 % (0.0-13.0); NEUTROPHILS # (AUTO) 6.8 x10^3/uL (2.2-4.8); NEUTROPHILS % (AUTO) 89.5 % (42.0-75.0); RED BLOOD COUNT 3.86 X10^6/uL (4.7-6.0); RED CELL DISTRIBUTION WIDTH 14.9 % (11.6-16.5); WHITE BLOOD COUNT 7.6 X10^3/uL (3.6-10.0)
[2022-11-22] MEDS: SOLU-Medrol 40 MG VIAL IVP SCH (05:13)
[2022-11-22 05:25] LABS: ALANINE AMINOTRANSFERASE 17 Units/L (12-78); ALBUMIN 2.4 g/dL (3.4-5.0); ALKALINE PHOSPHATASE 59 Units/L (46-116); ASPARTATE AMINO TRANSFERASE 22 Units/L (15-37); BLOOD UREA NITROGEN 11 mg/dL (7-18); CARBON DIOXIDE 20.7 mmol/L (21-32); CHLORIDE 110 mmol/L (98-107); COR CA(FOR HYPOALB) 9.3 mg/dL (8.5-10.1); COR NA(FOR HYPERGLY) 142 mmol/L (136-145); CREATININE 0.76 mg/dL (0.70-1.30); SODIUM 141 mmol/L (136-145); TOTAL PROTEIN 5.9 g/dL (6.4-8.2); eGFR NON BLACK RACES > 60 (>60)
[2022-11-22] MEDS: ROCEPHIN VIAL 1 GRAM 1 G in NS 100 ML IV 100 ML IV SCH (08:19)
[2022-11-22] MEDS: ROBITUSSIN DM PO SCH (08:20)
[2022-11-22] MEDS: FLOMAX PO SCH (08:21)
[2022-11-22] MEDS: MULTAQ PO SCH (08:21)
[2022-11-22] MEDS: LOPRESSOR TAB 50 MG PO SCH (08:21)
[2022-11-22] MEDS: PROTONIX TAB 40 MG PO SCH (08:21)
[2022-11-22] MEDS: PLAVIX PO SCH (08:21)
[2022-11-22] MEDS: ELIQUIS PO SCH (08:21)
[2022-11-22] MEDS: FERROUS GLUCONATE PO SCH (08:21)
[2022-11-22] MEDS: TOPAMAX PO SCH (08:34)
[2022-11-22] MEDS: PULMICORT NEB TX 0.5 MG NEB SCH (08:45)
[2022-11-22] MEDS: XOPENEX 1.25 MG/3 ML NEBULE NEB SCH (08:45)
[2022-11-22 12:41] VITALS: BP 141/69
== END 2022-11-22 12:18 | disposition home or self-care (01) ==
LOC: ICU
PROVIDERS: ADMIT Internal Medicine; ATTEND Internal Medicine
DX: I10 Essential (primary) hypertension; E78.2 Mixed hyperlipidemia; R19.7 Diarrhea, unspecified; J15.211 Pneumonia due to Methicillin susceptible Staphylococcus aureus; Z20.822 Contact with and (suspected) exposure to COVID-19; Z95.0 Presence of cardiac pacemaker; R79.89 Other specified abnormal findings of blood chemistry; R06.02 Shortness of breath; J44.9 Chronic obstructive pulmonary disease, unspecified; E87.6 Hypokalemia; I25.10 Atherosclerotic heart disease of native coronary artery without angina pectoris

== ENCOUNTER 2025-04-22 10:09 | Observation (INO) ==
[2025-04-22] MEDS ORDERED: NS 1,000 ML IV 1,000 ML ONE (10:25)
[2025-04-22 11:16] VITALS: BMI 18.3
[2025-04-22] MEDS: NS 1,000 ML IV 1,000 ML IV SCH (11:26)
[2025-04-22] MEDS: ROCEPHIN VIAL 1 GRAM 1 G in NS 100 ML IV 100 ML IV SCH (11:32)
[2025-04-22 12:20] LABS: MEAN PLATELET VOLUME 6.6 fL (7.4-11.0); RED CELL DISTRIBUTION WIDTH 15.2 % (11.6-16.5)
[2025-04-22 12:31] LABS: COR CA(FOR HYPOALB) 9.0 mg/dL (8.5-10.1); CREATININE 1.45 mg/dL (0.70-1.30); eGFR NON BLACK RACES 51 (>60)
--- NOTE | 2025-04-22 12:43 | DR.H&P ---
H&P History & Physical for Day of: H&P Date: 04/22/25 Chief Complaint Chief Complaint: WEAKNESS, NAUSEA, INFECTED ANT BITES RIGHT LEG History of Present Illness History of Present Illness: PT IS 69 WM, DIRECT ADMIT FROM DR LEW OFFICE WITH CELLULITIS TO RLE FROM MULTIPLE ANT BITES. 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 PT BECAME DIAPHORETIC IN THE OFFICE AND "FELT LIKE HE WAS GOING TO PASS OUT" PT REPORTS HE HAS TAKEN ELIQUIS AND PAIN MEDICATION THIS AM. PT ADMITTED FOR TREATMENT AND EVALUATION OF ACUTE ILLNESS. Past Medical History Past Medical History: Angina, Arthritis, CVA, Dyslipidemia, Headaches and Hypertension Additional Medical History: PAD Past Surgical History Surgical History: Angioplasty/Stents Family History Family Medical History: Cancer, OR, Heart Failure and Hypertension Medications Home Medications: Home Medications Medication Instructions Recorded Confirmed Type fentanyl 25 mcg/hr transdermal 1 patch transdermal Q72 H 05/06/18 06/12/23 History patch topiramate 25 mg tablet (Topamax) 25 mg PO BID 8 06/12/23 History zolpidem 10 mg tablet (Ambien) 10 mg PO QHS PRN 06/12/23 History atorvastatin 80 mg tablet 10 mg PO HS 10/03/20 3 History omeprazole 40 mg capsule,delayed 40 mg PO DAILY 06/12/23 History release tamsulosin 0.4 mg capsule (Flomax) 0.4 mg PO QDAY 09/1106/12/23 History nitroglycerin 0.4 mg sublingual 0.4 mg sublingual Q5M PRN 10/09/22 06/12/23 History tablet apixaban 5 mg tablet (Eliquis) 1 tab PO BID 11/20/22 1 History clopidogrel 75 mg tablet 1 tab PO QDAY 11/20/2206/12 History dronedarone 400 mg tablet (Multaq) 1 tab PO BID 06/12/23 History erenumab-aooe 140 mg/mL 1 ea subcut MONTHLY 11/20/22 06/12/23 History subcutaneous auto-injector (Aimovig Autoinjector) ferrous sulfate 325 mg (65 mg 325 mg PO QDAY 11/20/22 06/12/23 History iron) tablet fluoxetine 10 mg capsule 1 cap PO QDAY 11/20/2206/12 History gabapentin 800 mg tablet 0.5 tab PO QID 11/20/2211/30 History hydrocodone 10 mg-acetaminophen 1 tab PO QID PRN 11/2006/12/23 History 325 mg tablet metoprolol tartrate 50 mg tablet 1 tab PO BID 11/20/22 06/12/23 History dicyclomine 20 mg tablet 1 tab PO TID 01/19/23 History rizatriptan 10 mg disintegrating mg PO 05/29/23 History tablet Allergies Allergies Allergy/AdvReac Type Severity Reaction Status Date / Time No Known Drug Allergies Allergy Unknown Verified 06/12/23 10:48 Labs 04/22/25 12:06 04/22/25 12:06 Labs: Laboratory WBC 6.5 X10^3/uL (3.6-10.0) 04/22/25 12:06 RBC 3.97 X10^6/uL (4.7-6.0) L 04/22/25 12:06 Hgb 11.3 g/dL (13.5-18.0) L 04/22/25 12:06 Hct 34.4 % (42.0-54.0) L 04/22/25 12:06 MCV 86.8 fL (80.0-100.0) 04/22/25 12:06 MCH 28.6 pg (27.0-34.0) 04/22/25 12:06 MCHC 32.9 g/dL (33.0-35.0) L 04/22/25 12:06 RDW 15.2 % (11.6-16.5) 04/22/25 12:06 Plt Count 337 X10^3/uL (150.0-450.0) 04/22/25 12:06 MPV 6.6 fL (7.4-11.0) L 04/22/25 12:06 Neut % (Auto) 59.0 % (42.0-75.0) 04/22/25 12:06 Lymph % (Auto) 29.3 % (21.0-51.0) 04/22/25 12:06 [place] % (Auto) 8.0 % (0.0-13.0) 04/22/25 12:06 Eos % (Auto) 2.8 % (0.9-2.9) 04/22/25 12:06 Baso % (Auto) 0.9 % (0.2-1.0) 04/22/25 12:06 Neut # (Auto) 3.8 x10^3/uL (2.2-4.8) 04/22/25 12:06 Lymph # (Auto) 1.9 X10^3/uL (1.3-2.9) 04/22/25 12:06 [place] # (Auto) 0.5 x10^3/uL (0.3-0.8) 04/22/25 12:06 Eos # (Auto) 0.2 x10^3/uL (0.0-0.2) 04/22/25 12:06 Baso # (Auto) 0.1 X10^3/uL (0.0-0.1) 04/22/25 12:06 Absolute Nucleated RBC 0.0 /100WBC 04/22/25 12:06 Review of Systems Constitutional: Weakness Eyes: No Symptoms Reported ENT: No Symptoms Reported Respiratory: Shortness of Breath Cardiovascular: Palpitations and Edema Gastrointestinal: Nausea Genitourinary: No Symptoms Reported Musculoskeletal: Leg Pain and Foot Pain Skin: Other (ANT BITES TO RIGHT FOOT) Neurological: Change in Speech (CHRONIC) Oriented: Normal Eyes: Normal Ear: Normal Nose: Normal Throat: Dry Respiratory: RLL Diminished and LLL Diminished Cardiovascular: Bradycardia Auscultation: Bowel Sounds: Normal Tenderness: Normal Skin: Decreased Turgur, Diaphoresis and Wound (MULTIPLE PUSTLAR LESIONS TO RIGHT FOOT) Musculoskeletal: Back:Lumbar, Swelling and Motor Deficit Psychiatric: Anxiety Mood Description: Anxious Speech Pattern: Clear and Appropriate Assessment/Plan (1) Cellulitis: Status: Acute Plan: ADMIT, IV HYDRATION EKG AND CE ON ADMISSION BP CONTROL IV ATBX PAIN CONTROL, VERIFY HOME MEDICATIONS ELECTROLYTE REPLACEMENT (2) Dehydration: Status: Acute (3) Bradycardia: Status: Acute (4) Dizziness: Status: Acute (5) CHF (congestive heart failure): Status: Acute (6) Afib: Status: Acute
[2025-04-22] MEDS ORDERED: CONSULT PHARMACY - POTASSIUM & MAGNESIUM XX SCH (13:00)
--- NOTE | 2025-04-22 13:04 | EKG ---
Test Reason : DIZZINESS, NEAR SYNCOPE Blood Pressure : */* mmHG Vent. Rate : 70 BPM Atrial Rate : 70 BPM P-R Int : 242 ms QRS Dur : 160 ms QT Int : 502 ms P-R-T Axes : 54 -2 111 degrees QTc Int : 542 ms Atrial-paced rhythm with prolonged AV conduction Left bundle branch block Abnormal ECG When compared with ECG of 07-MAY-2023 10:45, No significant change was found Confirmed by Sebastien Aguirre MD ([id number]) on 04/23/2025 9:00:41 AM Referred By: Confirmed By: Sebastien Aguirre MD
[2025-04-22] MEDS: K-DUR TAB 20 MEQ PO SCH (13:41)
[2025-04-22] MEDS: BACTROBAN TOPICAL OINT TOP SCH (13:42)
[2025-04-22] MEDS: NORCO 10/325 TAB PO PRN (14:47)
[2025-04-22] MEDS: MAG-OX TAB PO SCH (15:53)
[2025-04-22] MEDS: LIPITOR TAB 40 MG PO SCH (18:22)
[2025-04-22] MEDS ORDERED: LOPRESSOR TAB 50 MG PO SCH (21:00)
[2025-04-22] MEDS: AMBIEN PO PRN (21:09)
[2025-04-22] MEDS: MULTAQ PO SCH (21:09)
[2025-04-22] MEDS: LOPRESSOR TAB 50 MG PO SCH (21:09)
[2025-04-22] MEDS: ELIQUIS PO SCH (21:10)
[2025-04-22 22:08] LABS: BLOOD/HEMOGLOBIN,URINE 3+ (NEGATIVE); LEUKOCYTE ESTERASE ,URINE 3+ (NEGATIVE); NITRITES,URINE NEGATIVE (NEGATIVE)
[2025-04-22 22:09] LABS: APPEARANCE,URINE HAZY (CLEAR)
[2025-04-22 22:15] LABS: SQUAMOUS EPITHELIAL CELL,UR RARE /HPF (NEGATIVE)
[2025-04-23 05:53] LABS: MEAN PLATELET VOLUME 6.7 fL (7.4-11.0); RED CELL DISTRIBUTION WIDTH 15.0 % (11.6-16.5)
[2025-04-23 06:10] LABS: COR CA(FOR HYPOALB) 9.1 mg/dL (8.5-10.1); CREATININE 1.09 mg/dL (0.70-1.30); eGFR NON BLACK RACES > 60 (>60)
[2025-04-23] MEDS ORDERED: CONSULT PHARMACY - POTASSIUM & MAGNESIUM XX SCH (07:00)
[2025-04-23] MEDS: CONSULT PHARMACY - POTASSIUM & MAGNESIUM XX SCH (07:34)
[2025-04-23 08:25] VITALS: TEMP 97.8
[2025-04-23] MEDS: MAG-OX TAB PO SCH (08:57)
[2025-04-23] MEDS: FLOMAX PO SCH (08:57)
[2025-04-23] MEDS: K-DUR TAB 20 MEQ PO SCH (08:57)
[2025-04-23 12:27] VITALS: BP 135/68; PULSE 70; RESP 19; O2SAT 99
== END 2025-04-23 13:00 | disposition home health service (06) ==
LOC: MED/SURG
PROVIDERS: ADMIT Internal Medicine; ATTEND Internal Medicine
DX: Z95.2 Presence of prosthetic heart valve; E86.0 Dehydration; S80.861A Insect bite (nonvenomous), right lower leg, initial encounter; R55 Syncope and collapse; R06.02 Shortness of breath; Y92.096 Garden or yard of other non-institutional residence as the place of occurrence of the external cause; E78.5 Hyperlipidemia, unspecified; E83.51 Hypocalcemia; Z79.01 Long term (current) use of anticoagulants; R94.31 Abnormal electrocardiogram [ECG] [EKG]; L03.115 Cellulitis of right lower limb; R26.89 Other abnormalities of gait and mobility; R94.4 Abnormal results of kidney function studies; E87.6 Hypokalemia; I10 Essential (primary) hypertension; R53.1 Weakness; B96.29 Other Escherichia coli [E. coli] as the cause of diseases classified elsewhere; E83.42 Hypomagnesemia; W57.XXXA Bitten or stung by nonvenomous insect and other nonvenomous arthropods, initial encounter; R42 Dizziness and giddiness; Z86.73 Personal history of transient ischemic attack (TIA), and cerebral infarction without residual deficits; R74.8 Abnormal levels of other serum enzymes; I48.91 Unspecified atrial fibrillation; I25.10 Atherosclerotic heart disease of native coronary artery without angina pectoris